=== PATIENT | female | born 1960 | race Caucasian/White ===

== ENCOUNTER 2018-06-09 11:35 | Outpatient (CLI) | payer OTHER ==
--- NOTE | 2018-06-09 12:32 | CT Report ---
Reason: CHRONIC SINUSITIS,UNSPECIFIED Procedure Date: 06/09/2018 Accession Number: [id number] / [id number] Procedure: CT - Sinuses CPT Code: FULL RESULT: EXAM: CT SINUS EXAM DATE: 06/09/2018 11:50 AM. HISTORY: Chronic sinusitis, unspecified. COMPARISONS: None. TECHNIQUE: Routine multi-axial CT imaging performed through the sinuses. Iodinated IV contrast: None. Reconstructions: Multiplanar reformats. In accordance with CT protocol optimization, one or more of the following dose reduction techniques were utilized for this exam: automated exposure control, adjustment of mA and/or KV based on patient size, or use of iterative reconstructive technique. FINDINGS: RIGHT Frontal: Normal. Ethmoid: Minor mucosal thickening of several anterior ethmoid air cells. Maxillary: Mucosal thickening (several millimeters) involving the periphery sparing the posterior wall. No air-fluid level. No bone dehiscence. Sphenoid: Normal. Drainage Pathways: The frontal recess, ostiomeatal complex and sphenoethmoidal recess are patent and normal. LEFT Frontal: Normal. Ethmoid: Minor mucosal thickening of several anterior ethmoid air cells. Maxillary: Normal. Sphenoid: Normal. Drainage Pathways: The frontal recess, ostiomeatal complex and sphenoethmoidal recess are patent and normal. Nasal Cavity: Normal. No mass or significant anatomic abnormality evident. Osseous Structures: Unremarkable. Orbits: Unremarkable. Other: None. IMPRESSION: Mucosal thickening without air-fluid level involving the right maxillary sinus with minimal involvement of bilateral anterior ethmoid air cells. RADIA
== END 2018-06-09 11:36 | disposition home or self-care (01) ==
LOC: DI 11:35
PROVIDERS: ATTEND Nurse Practitioner Family
DX: J32.8 Other chronic sinusitis (principal)
CPT/HCPCS: 70486

== ENCOUNTER 2018-12-29 16:37 | Emergency (ER) | payer OTHER ==
--- NOTE | 2018-12-29 19:02 | XRAY Report ---
Reason: r knee pain Procedure Date: 12/29/2018 Accession Number: [id number] / [id number] Procedure: XR - Knee 4 View RT CPT Code: FULL RESULT: EXAM: RIGHT KNEE RADIOGRAPHY EXAM DATE: 12/29/2018 06:47 PM. CLINICAL HISTORY: R knee pain. COMPARISON: None. TECHNIQUE: 4 views. FINDINGS: Bones: No acute fracture. Joints: There may be a small to moderate effusion. No dislocation. Mild to moderate medial compartment joint space narrowing with osteophyte formation. Soft Tissues: Unremarkable. IMPRESSION: Medial compartment osteoarthrosis. RADIA
[2018-12-29] MEDS ORDERED: KETOROLAC 60 MG/2 ML VIAL IM STA (19:23)
--- NOTE | 2018-12-29 19:24 | ED Physician Documentation ---
History of Present Illness - Stated complaint Stated Complaint: RIGHT KNEE PAIN - Chief complaint Chief Complaint: Ext Problem - History obtained from History obtained from: Patient, Friend - History of Present Illness Timing: Yesterday Pain level max: 8 Pain level now: 7 Improved by: rest Worsened by: walking - Additonal information Additional information: 58-year-old female with ongoing right knee pain, worse after going downstairs yesterday while carrying a fire extinguisher. Worse with walking. Better with rest. Had an MRI 2 days ago at the [place]. No fall. Does not use any assistive walking devices. Review of Systems Musculoskeletal: denies: Neck pain, Back pain Neurologic: denies: Focal weakness, Numbness PD PAST MEDICAL HISTORY - Past Medical History Past Medical History: Yes Cardiovascular: Hypertension, High cholesterol Respiratory: None Neuro: None Endocrine/Autoimmune: Type 2 diabetes GI: GERD JUNIOR ESTIMATOR: None : None HEENT: None Psych: Depression Musculoskeletal: None Derm: None - Past Surgical History Past Surgical History: Yes General: Cholecystectomy, Appendectomy Ortho: Shoulder arthroplasty /JUNIOR ESTIMATOR: Oophrectomy - Present Medications Home Medications: Ambulatory Orders Medication Instructions Recorded Confirmed Buproprion 10/24/15 Cholesterol Med 10/24/15 Serazone 10/24/15 Thyroid Med 10/24/15 metFORMIN [Glucophage] BID 10/24/15 raNITIdine [Zantac] 150 mg DAILY 10/24/15 10/24/15 Meloxicam [Mobic] 15 mg PO DAILY PRN #20 tablet 12/29/18 - Allergies Allergies/Adverse Reactions: Allergies Allergy/AdvReac Type Severity Reaction Status Date / Time morphine Allergy Respiratory Verified 12/29/18 16:51 tetracycline Allergy Edema Verified 12/29/18 16:51 - Social History Does the pt smoke?: No Smoking Status: Never smoker Does the pt drink ETOH?: No Does the pt have substance abuse?: No - Immunizations Immunizations are current?: Yes - POLST Patient has POLST: No PD ED PE NORMAL - Vitals Vital signs reviewed: Yes - General General: Alert and oriented X 3, No acute distress - HEENT HEENT: Moist mucous membranes - Neck Neck: Supple, no meningeal sign - Derm Derm: Warm and dry - Extremities Extremities: Other (Mild swelling of the right knee. ACL, MCL, PCL, LCL are intact grossly. Unable to tolerate meniscus testing well. Mild tenderness in the medial aspect of the knee. Neurovascular intact) - Neuro Neuro: Alert and oriented X 3 Results - Vitals Vitals: Vital Signs - 24 hr 12/29/18 12/29/18 16:48 19:43 Temperature 35.9 C L 36.5 C Heart Rate 94 92 Respiratory 18 18 Rate Blood Pressure 141/84 H 143/87 H O2 Saturation 98 98 Oxygen O2 Source Room air - Rads (name of study) Right knee x-ray Radiology: Prelim report reviewed, EMP read contemporaneously, See rad report (Medial compartment arthritis) PD MEDICAL DECISION MAKING - ED course Complexity details: reviewed results, re-evaluated patient, considered differential, d/w patient ED course: 58-year-old female presents to the emergency department the right knee pain. Appears to have arthritis in that knee on x-ray. Possible meniscus injury as well. Placed in an articulating knee brace for comfort. Will trial on meloxicam. We will follow-up with her doctor for further care. Patient counseled regarding signs and symptoms for which I believe and urgent re- evaluation would be necessary. Patient with good understanding of and agreement to plan and is comfortable going home at this time This document was made in part using voice recognition software. While efforts are made to proofread this document, sound alike and grammatical errors may occur. Departure - Departure Disposition: 01 Home, Self Care Clinical Impression: Knee pain, right Qualifiers: Chronicity: acute Qualified Code(s): M25.561 - Pain in right knee Osteoarthritis Qualifiers: Osteoarthritis location: knee Osteoarthritis type: unspecified Laterality: right Qualified Code(s): M17.11 - Unilateral primary osteoarthritis, right knee Condition: Good Instructions: ED Meniscal Injury Knee Poss, ED Degenerative Joint Disease Follow-Up: Naif Sam MD [Primary Care Provider] - Within 1 week Prescriptions: Meloxicam [Mobic] 15 mg PO DAILY PRN #20 tablet PRN Reason: pain Comments: You can wear the brace as needed for comfort. Return if you worsen. Follow-up with your doctor for further evaluation and care. Your x-ray shows medial compartment arthritis of your knee today. Discharge Date/Time: 12/29/18 19:48
[2018-12-29 19:44] VITALS: BP 143/87
== END 2018-12-29 19:48 | disposition home or self-care (01) ==
LOC: ED 16:37
DX: M25.561 Pain in right knee (principal); M17.11 Unilateral primary osteoarthritis, right knee; I10 Essential (primary) hypertension; E11.9 Type 2 diabetes mellitus without complications; Z79.84 Long term (current) use of oral hypoglycemic drugs
CPT/HCPCS: 96372; 99283; 99284

== ENCOUNTER 2021-01-22 07:56 | Day surgery (SDC) | payer OTHER ==
[2021-01-22] MEDS ORDERED: LACTATED RINGERS 1,000 ML IV ONE ×2 (08:21→10:31)
[2021-01-22] MEDS ORDERED: LIDO GARGLE 30 ML BOTTLE PO ONE (09:50)
[2021-01-22] MEDS ORDERED: BENZOCAINE/TETRACAINE/BUTAMBEN 20 GM TOP ONE (09:51)
[2021-01-22] MEDS ORDERED: LIDO GARGLE 30 ML BOTTLE ONE (09:51)
[2021-01-22] MEDS ORDERED: MIDAZOLAM 2 MG/2 ML VIAL ONE ×2 (10:00→10:11)
[2021-01-22] MEDS ORDERED: fentaNYL 250 MCG/5 ML VIAL ONE (10:01)
[2021-01-22 11:03] VITALS: BP 118/62
== END 2021-01-22 07:57 | disposition home or self-care (01) ==
LOC: SDS 07:56
PROVIDERS: ATTEND Surgery
PROC: 0DB28ZX Excision of Middle Esophagus, Via Natural or Artificial Opening Endoscopic, Diagnostic (ICD-10-PCS; 2021-01-22)
PROC: 0DB48ZX Excision of Esophagogastric Junction, Via Natural or Artificial Opening Endoscopic, Diagnostic (ICD-10-PCS; principal; 2021-01-22 09:45)
DX: K20.0 Eosinophilic esophagitis (principal); K31.7 Polyp of stomach and duodenum; F32.9 Major depressive disorder, single episode, unspecified; Z87.891 Personal history of nicotine dependence; Z79.899 Other long term (current) drug therapy
CPT/HCPCS: 43239; A9270; J3010; J7120

== ENCOUNTER 2022-03-31 12:57 | Outpatient (CLI) | payer OTHER ==
--- NOTE | 2022-03-31 17:09 | Ultrasound Report ---
PROCEDURE: Duplex Ext Veins Left INDICATIONS: SUPERFICIAL PHLEBITIS OF ARM TECHNIQUE: Real-time imaging, as well as color and pulse Doppler interrogation, were performed of the lower extr emity deep veins from the inguinal ligament to the popliteal fossa. COMPARISON: None. FINDINGS: The deep veins are normally compressible, and free of intraluminal thrombus. Color and pu lse Doppler demonstrate normal phasic intraluminal flow. There is normal augmentation response to di stal compression maneuver. There is a focus of heterogeneous echogenicity medial to the cephalic vein at the cubital fossa measu ring 2.8 x 0.4 x 1.2 cm. IMPRESSION: No evidence of deep venous thrombosis or superficial thrombophlebitis. Focus of heterogeneous echogenicity within the cubital fossa suggestive potentially hematoma. Abscess can also have a similar appearance and clinical correlation is recommended. Reviewed by: Gay Carreon MD on 03/31/2022 5:07 PM PDT Approved by: Gay Carreon MD on 03/31/2022 5:07 PM PDT Station ID: [id number]
== END 2022-03-31 12:58 | disposition home or self-care (01) ==
LOC: DI 12:57
PROVIDERS: ATTEND Registered Nurse
DX: I80.8 Phlebitis and thrombophlebitis of other sites (principal)

== ENCOUNTER 2022-04-07 17:34 | Outpatient (CLI) | payer OTHER ==
--- NOTE | 2022-04-08 16:22 | XRAY Report ---
PROCEDURE: Ribs w/PA Chest LT INDICATIONS: L RIB PX AFTER A FALL TECHNIQUE: 3 views of the of ribs were acquired, along with a single view chest. COMPARISON: None FINDINGS: Surgical changes and devices: None. Bones and chest wall: No fractures or dislocations. No suspicious bony lesions. Overlying soft tis sues appear unremarkable. Lungs and pleura: No pleural effusions or pneumothorax. Lungs appear clear. Mediastinum: Mediastinal contours appear normal. Heart size is normal. IMPRESSION: No visualized acute fracture or dislocation. However, occult injury cannot be excluded. Recommend cem rt interval imaging follow-up in 7-10 days as clinically indicated for additional evaluation. Reviewed by: Gay Carreon MD on 04/08/2022 4:21 PM PDT Approved by: Gay Carreon MD on 04/08/2022 4:21 PM PDT Station ID: [id number]
--- NOTE | 2022-04-08 16:23 | XRAY Report ---
PROCEDURE: Knee 2 View LT INDICATIONS: L KNEE PX TECHNIQUE: 2 views of the left knee(s) were acquired. COMPARISON: None. FINDINGS: Bones: No fractures or dislocations. No suspicious bony lesions. Moderate to severe medial and mod erate patellofemoral as well as lateral compartment narrowing. Small periarticular osteophytes are pr esent. No erosions Soft tissues: Mild joint effusion. No suspicious soft tissue calcifications. IMPRESSION: Tricompartmental arthritic change most severe medially. Reviewed by: Gay Carreon MD on 04/08/2022 4:21 PM PDT Approved by: Gay Carreon MD on 04/08/2022 4:21 PM PDT Station ID: [id number]
== END 2022-04-07 23:59 | disposition home or self-care (01) ==
LOC: DI.N 17:34
PROVIDERS: ATTEND Nurse Practitioner
DX: R07.81 Pleurodynia (principal); M17.12 Unilateral primary osteoarthritis, left knee